=== PATIENT | male | born 1970 | race Caucasian/White ===

== ENCOUNTER 2019-11-22 08:49 | Emergency (ER) | payer BC ==
[~2019-11-22] VITALS: Ht 175.3 cm; Wt 86.2 kg
[2019-11-22 09:10] VITALS: BP_SYST 132
--- NOTE | 2019-11-22 09:13 | NUR ---
Patient to ER bed 7 to gown for evaluation. Side rails up. Report given to Zain HIGH.
--- NOTE | 2019-11-22 09:28 | NUR ---
Pt came to ER for L flank rash x2 days, warm, red, and dry. No pain reported, AO4, awaiting MD.
--- NOTE | 2019-11-22 09:29 | NUR ---
ER at bedside examining patient.
[2019-11-22 09:55] VITALS: BP_SYST 132
--- NOTE | 2019-11-22 09:55 | NUR ---
Patient given written and verbal discharge instructions and verbalizes understanding. ER MD discussed with patient the results and treatment provided. Patient in stable condition. ID arm band removed. Rx of Acyclovir and Tramadol given. Patient educated on pain management and to follow up with PMD. Pain Scale 0/10. Opportunity for questions provided and answered. Medication side effect fact sheet provided.
== END 2019-11-22 09:55 | disposition home or self-care (01) ==
LOC: SED 08:49
DX: B02.9 Zoster without complications (principal)
CPT/HCPCS: 99283